=== PATIENT | female | born 2000 | race Hispanic/Latino ===

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

== ENCOUNTER 2019-02-12 02:44 | Emergency (ER) | payer OTHER, SELFPAY ==
[2019-02-12 03:12] LABS: #Eosinphils 0.2 thou/uL (0.0-0.7); #Lymphocytes 2.6 thou/uL (1.20-3.40); #Monocytes 0.6 thou/uL (0.11-0.59); #Neutrophils 4.9 thou/uL (1.40-6.50); %Basophils 0.5 % (0.0-1.0); %Eosinophils 2.7 % (0.0-10.0); %Lymphocytes 31.5 % (28.0-48.0); %Monocytes 7.3 % (0.0-4.0); %Neutrophils 57.9 % (31.0-61.0); Hemoglobin 14.5 g/dL (12.0-16.0); Mean Corpuscular HGB CONC 34.7 g/dL (32.0-36.0); Mean Corpuscular Hemoglobin 32.6 pg (25.0-35.0); Mean Corpuscular Volume 94.1 fL (78.0-98.0); Mean Platelet Volume 8.4 fL (7.4-10.4); Platelet Count 253 thou/uL (130-400); RBC Distribution Width 11.4 % (11.5-14.5); Red Blood Cell (RBC) Count 4.43 mill/uL (4.00-5.20); White Blood Cell (WBC) Count 8.4 thou/uL (4.8-10.8)
[2019-02-12 03:19] LABS: Bilirubin Negative (Negative); Blood, Urine Negative (Negative); Clarity Clear (Clear); Glucose, Urine (Dipstick) Normal (Negative); Leukocyte 25 Leu/uL (Negative); Nitrite Negative (Negative); Protein, Urine (Dipstick) Negative (Neg-Trace); Squamous Epithelial 0-3 HPF (0-3); Urobilinogen Normal mg/dL (Less than 2); WBC/HPF 0-3 HPF (0-3)
== END 2019-02-12 04:22 | disposition home or self-care (01) ==
LOC: ERS 02:44
DX: O20.0 Threatened abortion (principal)
CPT/HCPCS: 81003; 81015; 84702; 85025; 86900; 86901

== ENCOUNTER 2019-02-22 14:53 | Emergency (ER) | payer SELFPAY ==
[2019-02-22 15:23] LABS: #Basophils 0.1 thou/uL (0.0-0.2); #Eosinphils 0.2 thou/uL (0.0-0.7); #Lymphocytes 2.3 thou/uL (1.20-3.40); #Monocytes 0.5 thou/uL (0.11-0.59); #Neutrophils 7.8 thou/uL (1.40-6.50); %Basophils 0.5 % (0.0-1.0); %Eosinophils 1.5 % (0.0-10.0); %Lymphocytes 21.3 % (28.0-48.0); %Monocytes 4.3 % (0.0-4.0); %Neutrophils 72.3 % (31.0-61.0); Hemoglobin 13.8 g/dL (12.0-16.0); Mean Corpuscular HGB CONC 34.1 g/dL (32.0-36.0); Mean Corpuscular Hemoglobin 32.1 pg (25.0-35.0); Mean Corpuscular Volume 94.2 fL (78.0-98.0); Mean Platelet Volume 8.3 fL (7.4-10.4); Platelet Count 260 thou/uL (130-400); RBC Distribution Width 11.5 % (11.5-14.5); White Blood Cell (WBC) Count 10.8 thou/uL (4.8-10.8)
--- NOTE | 2019-02-22 16:50 | ULT ---
ULTRASOUND PELVIS TRANSVAGINAL WITH DOPPLER: 02/22/19 HISTORY: Vaginal bleeding and . COMPARISON: None. FINDINGS: Single viable intrauterine with average ultrasound age of 7 week, 2 day. Estimated date of delivery 10/29/19. Diablo-rump length: 1.03 cm, 7 week, 1 day. Gestational sac diameter: 2.43 cm, 7 week, 3 day. Yolk sac: 3 mm. heart rate documented at 145 beats per minute. Small subchorionic hemorrhage. The right ovary is not well seen. The left ovary appears normal although vascular flow evaluation is limited due to its posterior position. IMPRESSION: Normal single viable intrauterine with small subchorionic hemorrhage. POS: HOME
[2019-02-24 04:39] LABS: Chlamydia by PCR Not Detected (NotDetected); GC by PCR Not Detected (NotDetected)
== END 2019-02-22 18:08 | disposition home or self-care (01) ==
LOC: ERS 14:53
DX: O20.9 Hemorrhage in early pregnancy, unspecified (principal); M54.5 Low back pain; Z3A.01 Less than 8 weeks gestation of pregnancy
CPT/HCPCS: 36415; 76856; 84702; 85025; 86900; 86901; 87480; 87491; 87510; 87591; 87660

== ENCOUNTER 2019-05-02 10:39 | Emergency (ER) | payer OTHER ==
[2019-05-02 11:18] LABS: #Basophils 0.1 thou/uL (0.0-0.2); #Eosinphils 0.1 thou/uL (0.0-0.7); #Lymphocytes 1.2 thou/uL (1.20-3.40); #Monocytes 0.2 thou/uL (0.11-0.59); #Neutrophils 4.9 thou/uL (1.40-6.50); %Basophils 1.1 % (0.0-1.0); %Eosinophils 1.3 % (0.0-10.0); %Monocytes 3.8 % (0.0-4.0); %Neutrophils 74.9 % (31.0-61.0); Hemoglobin 12.9 g/dL (12.0-16.0); Mean Corpuscular HGB CONC 35.8 g/dL (32.0-36.0); Mean Corpuscular Hemoglobin 33.5 pg (25.0-35.0); Mean Corpuscular Volume 93.4 fL (78.0-98.0); Mean Platelet Volume 8.7 fL (7.4-10.4); Platelet Count 191 thou/uL (130-400); RBC Distribution Width 12.1 % (11.5-14.5); Red Blood Cell (RBC) Count 3.87 mill/uL (4.00-5.20); White Blood Cell (WBC) Count 6.5 thou/uL (4.8-10.8)
[2019-05-02 11:42] LABS: ALT (SGPT) 24 U/L (8-55); AST (SGOT) 21 U/L (5-34); Albumin 4.1 g/dL (3.5-5.0); Alkaline Phosphatase 58 U/L (40-150); Anion Gap 11 mmol/L (10-20); BUN (Urea Nitrogen) 5 mg/dL (7.0-18.7); Bilirubin, Total 0.4 mg/dL (0.2-1.2); Calc. Creatinine Clearance 0 mL/min (70-130); Calcium 9.6 mg/dL (7.8-10.44); Carbon Dioxide 22 mmol/L (22-29); Chloride 106 mmol/L (98-107); Estimated GFR-MDRD Greater than 90; Globulin 3.1 g/dL (2.4-3.5); Glucose 99 mg/dL (70-105); Potassium 3.6 mmol/L (3.5-5.1); Protein, Total 7.2 g/dL (6.0-8.3); Sodium 135 mmol/L (136-145)
[2019-05-02 13:09] LABS: Bilirubin Negative (Negative); Blood, Urine Negative (Negative); Clarity Clear (Clear); Glucose, Urine (Dipstick) Normal (Negative); Leukocyte Negative Leu/uL (Negative); Nitrite Negative (Negative); Protein, Urine (Dipstick) Negative (Neg-Trace); Urobilinogen Normal mg/dL (Less than 2)
[2019-05-03 21:40] LABS: Chlamydia by PCR Not Detected (NotDetected); GC by PCR Not Detected (NotDetected)
== END 2019-05-02 13:36 | disposition home or self-care (01) ==
LOC: ERS 10:39
DX: O99.89 Other specified diseases and conditions complicating pregnancy, childbirth and the puerperium (principal); R10.32 Left lower quadrant pain; Z3A.17 17 weeks gestation of pregnancy
CPT/HCPCS: 36415; 80053; 81003; 84702; 85025; 87491; 87591; 99284

== ENCOUNTER 2019-05-26 13:24 | Outpatient (CLI) | payer OTHER ==
--- NOTE | 2019-05-26 14:32 | ULT ---
EXAM: OB ultrasound COMPARISON: None HISTORY: female. Evaluate size, dates, and anatomy. TECHNIQUE: Multiplanar grayscale and color Doppler images were obtained in a transabdominal ult rasound. FINDINGS: There is a single live intrauterine with heart rate of 144 bpm. A survey wa s performed which is unremarkable. The head, intracranial structures, heart, stomach, kidneys, umbilical cord, umbilical cord insertion, spine, face, and extremities were evaluated and were unrema rkable. Estimated weight is 407 g. Average age of the fetus based off today's examination is 21 weeks 4 days. BPD 5.32 cm -- 22 weeks 2 days HC 18.87 cm -- 21 weeks 2 days AC 15.98 cm -- 21 weeks 1 day FL 3.56 cm -- 21 weeks 2 days The placenta is anterior in location without focal abnormality. JAMA is 14.7 cm which is normal. The cervix is slightly shortened in length measuring 2.5 cm. There is no evidence of placenta previa. IMPRESSION: Single live intrauterine with estimated age of 21 weeks 4 days.
== END 2019-05-26 13:25 | disposition home or self-care (01) ==
LOC: BICULT 13:24
PROVIDERS: ATTEND Obstetrics & Gynecology
DX: Z34.02 Encounter for supervision of normal first pregnancy, second trimester (principal); Z3A.21 21 weeks gestation of pregnancy
CPT/HCPCS: 76805

== ENCOUNTER 2019-07-29 09:36 | Day surgery (SDC) | payer OTHER ==
[2019-07-29 10:06] VITALS: BP 108/65; TEMP 98; BMI 21.4
--- NOTE | 2019-07-29 11:08 | ULT ---
US Biophysical Profile History: Cholestasis Comparison: OB ultrasound May 2019 Findings: The biophysical profile score is 8/8. Amniotic fluid index measures 10 cm. The placenta is anterior and the position is vertex. Impression: Biophysical profile score of 8/8.
== END 2019-07-29 11:05 | disposition home or self-care (01) ==
LOC: L&D/OP 09:36
PROVIDERS: ATTEND Obstetrics & Gynecology
DX: O26.619 Liver and biliary tract disorders in pregnancy, unspecified trimester (principal); K83.1 Obstruction of bile duct; Z3A.00 Weeks of gestation of pregnancy not specified
CPT/HCPCS: 59025; 76819; 99282

== ENCOUNTER 2019-09-03 07:33 | Inpatient (IN) | payer OTHER, SELFPAY ==
[2019-09-03] MEDS ORDERED: Lidocaine 1% (PF) 30 ML VIAL SC PRN (08:06)
[2019-09-03] MEDS ORDERED: Ondansetron PF 4 MG/2 ML Vial IVP PRN (08:06)
[2019-09-03] MEDS ORDERED: Lidocaine 1% (PF) 30 ML VIAL ONE (08:06)
[2019-09-03] MEDS ORDERED: HYDROcodone/Acetaminophen 5/325 mg Tablet PO PRN (08:06)
[2019-09-03] MEDS ORDERED: hydrALAZINE 20 MG/ML VIAL SLOW IVP PRN ×2 (08:06→10:18)
[2019-09-03] MEDS ORDERED: NS / Oxytocin 40 units/1000ml 1,000 ML ONE (08:06)
[2019-09-03] MEDS ORDERED: NS / Oxytocin 40 units/1000ml 1,000 ML IV PRN (08:06)
[2019-09-03] MEDS ORDERED: Ibuprofen 800 MG TAB PO PRN (08:06)
[2019-09-03] MEDS ORDERED: Lactated Ringer's 1,000 ML IV SCH (08:15)
[2019-09-03 08:48] LABS: Hemoglobin 10.7 g/dL (12.0-16.0); Mean Corpuscular HGB CONC 34.4 g/dL (32.0-36.0); Mean Corpuscular Hemoglobin 30.7 pg (27.0-31.0); Mean Corpuscular Volume 89.4 fL (78.0-98.0); Mean Platelet Volume 9.9 fL (7.4-10.4); Platelet Count 231 thou/uL (130-400); RBC Distribution Width 12.3 % (11.5-14.5); Red Blood Cell (RBC) Count 3.47 mill/uL (4.20-5.40); White Blood Cell (WBC) Count 10.2 thou/uL (4.8-10.8)
[2019-09-03 09:15] LABS: HBSAg Index 0.17 S/CO (0-0.99); Hep B Surf Ag Non-Reactive S/CO (NonReactive); Syphilis Antibody Nonreactive (Nonreactive); Syphilis Antibody Index 0.04 S/CO (<1.00 Non-Reactive)
[2019-09-03 09:48] VITALS: BMI 22.6
[2019-09-03] MEDS ORDERED: Milk Of Magnesia 30 ML UDCUP PO PRN (10:18)
[2019-09-03] MEDS ORDERED: NS / Oxytocin 40 units/1000ml 1,000 ML IV SCH (10:18)
[2019-09-03] MEDS ORDERED: Bisacodyl 10 MG SUPP PR PRN (10:18)
[2019-09-03] MEDS ORDERED: Adacel (T-DAP) 0.5 ML SYRINGE IM ONE (10:18)
--- NOTE | 2019-09-03 10:36 | PDOC.FPROB ---
FMR OB H&P: HPI - History of Present Illness Chief Complaint: Contractions Indentification: 19 y/o at 34.5 wks by LMP/1T sono History of Present Illness: 19 y/o at 34.5 wks by LMP/1T sono presents with contractions since 2:00 AM that have increased in intensity and frequency. On presentation patient noted to be complete. She denies any significant PMH. Patient endorses movement. Primary Care Physician: Enoch FMR OB H&P: Current - Care : 2 Para: 0010 Gestational age: 34.5 wks Due date: 10/10/2019 Dating Criteria: LMP/1T sono - OB Labs Blood type: O RH: positive Antibody Screen: negative HIV: negative RPR: negative HepBsAg: negative Rubella: immune Urine drug screen: negative Gonorrhea: negative Chlamydia: negative 1 hour gtt: 118 GBS: unknown FMR OB H&P: History - Past Medical History PMH: Denies - OB History OB History: SAB x1 Cholestasis of - DIALYSIS REGISTERED NURSE History DIALYSIS REGISTERED NURSE History: Hx LGSIL - Surgical History Sx History: Denies - Social History Social History: Denies alcohol, tobacco, or drug use FMR OB H&P: Medications - Current Home Medications: Medication Instructions Recorded Confirmed Type Ursodiol [Julio Cesar] 1 tab PO TID 07/29/19 09/03/19 History predniSONE 1 tab PO DAILY 09/03/19 09/03/19 History Allergies/Adverse Reactions: Allergies Allergy/AdvReac Type Severity Reaction Status Date / Time No Known Drug Allergies Allergy Verified 07/29/19 10:01 FMR OB H&P: ROS - Review of Systems General: reports: fever/chills, weight/appetite/sleep changes Eyes: reports: eye pain, double vision ENT: reports: nasal congestion, sore throat Respiratory: reports: cough, congestion, shortness of breath Gastrointestinal: reports: abdominal pain, nausea. denies: vomiting Genitourinary (Female): reports: vaginal pain, contractions, vaginal pressure. denies: dysuria Musculoskeletal: denies: pain, stiffness Neurologic: denies: numbness, seizures Integumentary: denies: itching, lesions FMR OB H&P: Vital Signs - Maternal Vital signs: BP 116/73 Pulse 86 Afebrile - Heart Tones Baseline: 135 Variability: moderate Acceleration: present Deceleration: absent Category: category 1 [place] contractions every: q2-3 min FMR OB H&P: Physical Exam - Physical Exam General: awake, alert and oriented Deviation from normal: Moderate distress d/t contractions HEENT: MMM Heart: RRR, pulses present General: no respiratory distress Abdomen: soft, gravid, bowel sound present Musculoskeletal: pulses present, FROM in all four extremities Neurological: no tremor, no focal deficit Skin: no rash, capillary refill <2 seconds Lymphatic: no unusual bruising or bleeding, no purpura Psychiatric: intact recent and remote memory FMR OB H&P: Results - Labs Lab results: Laboratory Results - last 24 hr 09/03/19 09/03/19 09/03/19 08:24 08:24 08:24 WBC RBC Hgb Hct MCV MCH MCHC RDW Plt Count MPV Syphilis IgG/IgM Ab Nonreactive Hep Bs Antigen Non-Reactive Blood Type O POSITIVE Antibody Screen NEGATIVE 09/03/19 08:24 WBC 10.2 RBC 3.47 L Hgb 10.7 L Hct 31.0 L MCV 89.4 MCH 30.7 MCHC 34.4 RDW 12.3 Plt Count 231 MPV 9.9 Syphilis IgG/IgM Ab Hep Bs Antigen Blood Type Antibody Screen FMR OB H&P: A/P - Problem List (1) Active labor Current Visit: Yes Status: Acute Code(s): BPA3494 - (2) Intrauterine Current Visit: Yes Status: Acute Code(s): Z34.90 - ENCNTR FOR SUPRVSN OF NORMAL , UNSP, UNSP TRIMESTER Disposition: 19 year old at 34.5 wk by LMP/1T sono presents in active labor. sIUP in active labor - Admit to L&D - Expectant management - Maternal Hx: cholestasis of , Hx SAB - GBS status unknown. Not enough time for antibiotics. - Precipitous deliver Cholestasis of - Patient had IOL scheduled for next week - Patient on ursodiol SAB x1 GBS Unknown - Precipitous delivery; antibiotics not given Dispo: Admit to L&D for expectant management. Discussion: Date/Time: 09/03/19 1033 This H&P was discussed with Dr. Chaudhari who agrees with the above documentation and plan. Signature: Zoila Zita, DO PGY-3 Addendum - Attending - Attending Attestation Date/Time: 09/04/19 3110 I personally evaluated the patient and discussed the management with Dr. Ahumada I agree with the History, Examination, Assessment and Plan documented above with any addition or exceptions noted below.
--- NOTE | 2019-09-03 11:11 | PDOC.OPDEL ---
OB Operative/Delivery Note Delivery Dr/Surgeon: Watson Ahumada Pre-Delivery Diagnosis: active labor Procedure/Post Delivery Dx: spontaneous vaginal delivery Weeks gestation: 34 (34.5 wks) Anesthesia: none - Findings A Sex: male Weight: 2.755 kg - 1 min: 8 - 5 min: 9 - Additional Findings/Plan Placenta delivered: spontaneous Repaired Obstetrical Laceration: other (right hymenal laceration, hemostatic) Estimated blood loss: 10 mL Compilations/Other Findings: Delivering Physician: Zita Attending: Watson Procedure: Spontaneous Vaginal Delivery Anesthesia: None EBL: 10 mL Pre-op Diagnosis: 1. IUP in active labor at 34.5 wks 2. Cholestasis of 3. Hx SAB Post-op Diagnosis: 1. IUP, delivered 2. Same as above Indications: A 19 y/o female who presents in active labor. Delivery Note: This is 19 yo F @ 34.5 wks by LMP/1T sono who delivered a viable M at 8:31 on 09/03/2019 via . Patient presented at 9 cm dilated. Just prior to delivery, bradycardia present. A vigorous male was delivered over an intact perineum in the occipitoanterior position. Anterior shoulder and then remainder of the body delivered. No nuchal cord. The head was held down and mouth and nares were bulb suctioned. Cord clamped and cut and cord blood collected. Placenta delivered intact with a 3 vessel cord noted. Fundal massage was performed and the fundus was firm. The cervix and vagina were inspected and a left hymenal laceration was noted that was hemostatic and did not need repair. Neonatology present at time of delivery. Based on Boyle scoring, they project to be closer to 37 WGA. Given gestational age based on Boyle scoring, infant did not require stay in NICU. went to routine nursery for care. Apgars were 8/9 at 1 & 5 minutes, respectively. Patient tolerated delivery well and went to after routine recovery/care. Post delivery plan: routine recovery Addendum - Attending - Attending Attestation Date/Time: 09/06/19 0724 I was personally present for the second and third stages of labor supervising Dr Ahumada and agree with the above documentation.
[2019-09-03] MEDS ORDERED: Benzocaine-Menthol 82.5 ML CAN TOP PRN (14:40)
[2019-09-03] MEDS ORDERED: Witch Hazel-Glycerin 1 EACH JAR TOP PRN (14:40)
[2019-09-03] MEDS: Ibuprofen 800 MG TAB PO SCH ×2 (15:46→19:04)
[2019-09-03] MEDS: Ferrous Sulfate 325 MG TAB PO SCH (16:13)
[2019-09-03] MEDS: Docusate Calcium (SURFAK) 240 MG CAP PO SCH (21:34)
[2019-09-04] MEDS: Ibuprofen 800 MG TAB PO SCH ×3 (03:03→21:59)
[2019-09-04 06:22] LABS: Hemoglobin 10.7 g/dL (12.0-16.0); Mean Corpuscular Volume 90.8 fL (78.0-98.0); Mean Platelet Volume 9.8 fL (7.4-10.4); Platelet Count 230 thou/uL (130-400); RBC Distribution Width 12.4 % (11.5-14.5); Red Blood Cell (RBC) Count 3.58 mill/uL (4.20-5.40); White Blood Cell (WBC) Count 10.6 thou/uL (4.8-10.8)
[2019-09-04] MEDS: Ferrous Sulfate 325 MG TAB PO SCH ×2 (08:08→18:26)
[2019-09-04] MEDS: Docusate Calcium (SURFAK) 240 MG CAP PO SCH ×2 (09:42→21:59)
[2019-09-05] MEDS: Ibuprofen 800 MG TAB PO SCH ×2 (05:50→13:42)
[2019-09-05 08:19] VITALS: BP 98/54; TEMP 98.1
[2019-09-05] MEDS: Ferrous Sulfate 325 MG TAB PO SCH (12:31)
[2019-09-05] MEDS: Docusate Calcium (SURFAK) 240 MG CAP PO SCH (12:31)
== END 2019-09-05 15:50 | disposition home or self-care (01) | DRG 805 ==
LOC: L&D/OP 07:33 → L&D 08:06 → 3SW 12:38
PROVIDERS: ADMIT Family Medicine; ATTEND Family Medicine
PROC: 10E0XZZ Delivery of Products of Conception, External Approach (ICD-10-PCS; principal; 2019-09-03)
DX: O60.14X0 Preterm labor third trimester with preterm delivery third trimester, not applicable or unspecified (principal); K83.1 Obstruction of bile duct; Z37.0 Single live birth; O26.62 Liver and biliary tract disorders in childbirth; Z3A.34 34 weeks gestation of pregnancy; O70.0 First degree perineal laceration during delivery
CPT/HCPCS: 36415; 85027; 86780; 86850; 86900; 86901; 87340; 88307; 99285; J2001

== ENCOUNTER 2021-04-24 23:33 | Emergency (ER) | payer MEDICAID, OTHER | END 2021-04-25 00:25 | disposition home or self-care (01) | LOC: ERS 23:33 | DX: F41.0 Panic disorder [episodic paroxysmal anxiety] (principal); R07.2 Precordial pain | CPT/HCPCS: 71045; 93005 ==

== ENCOUNTER 2025-05-30 21:05 | Emergency (ER) | payer MEDICAID, SELFPAY ==
[2025-05-30 22:06] LABS: Bacteria/HPF None Seen HPF (None Seen); CAUTI Indications for Culture Alt mental st,lethar; Glucose, Urine (Dipstick) Normal (Negative); Leukocyte Negative Leu/uL (Negative); Protein, Urine (Dipstick) Negative (Neg-Trace); RBC/HPF 0-3 HPF (0-3); Specific Gravity, Urine 1.032 (1.002-1.036); WBC/HPF 0-3 HPF (0-3)
[2025-05-30 22:09] LABS: Pregnancy Test - Urine (BHCG) Negative (Negative); Pregu Control Background? CLEAR/WHITE (CLR/WHITE); Pregu Control Bar Appear? YES (CONTROL BAR)
[2025-05-30 22:10] LABS: Urine Culture Reflex No No
[2025-05-30 22:14] LABS: Cocaine Metabolite Screen Negative (Negative); THC/Cannabinoid Screen Negative (Negative); Tricyclic Screen Negative (Negative)
[2025-05-30 22:39] LABS: #Basophils 0.03 10x3/uL (0.0-0.2); #Eosinophils 0.21 10x3/uL (0.0-0.7); #Monocytes 0.41 10x3/uL (0.11-0.59); #Neutrophils 3.42 10x3/uL (1.40-6.50); %Basophils 0.5 % (0.0-1.0); %Eosinophils 3.3 % (0.0-10.0); %Lymphocytes 35.8 % (21.0-51.0); %Monocytes 6.4 % (0.0-10.0); %Neutrophils 53.7 % (42.0-75.0); Hematocrit 40.3 % (36.0-47.0); Hemoglobin 13.4 g/dL (12.0-16.0); Mean Corpuscular Hemoglobin 30.9 pg (27.0-31.0); Mean Corpuscular Volume 92.9 fL (78.0-98.0); Platelet Count 256 10x3/uL (130-400); Red Blood Cell (RBC) Count 4.34 mill/uL (4.20-5.40); White Blood Cell (WBC) Count 6.37 10x3/uL (4.8-10.8)
[2025-05-30 23:12] LABS: Acetaminophen Less than 10 mcg/mL (Less than 10); Salicylate Less than 8.0 mg/dL (Less than 8.0)
[2025-05-30 23:13] LABS: ALT (SGPT) 28 U/L (Less than 34); AST (SGOT) 35 U/L (11-34); Albumin 4.6 g/dL (3.1-4.5); Alkaline Phosphatase 58 U/L (40-110); Anion Gap 14 mmol/L (10-20); BUN (Urea Nitrogen) 17 mg/dL (7.0-18.7); Bilirubin, Total 0.4 mg/dL (0.3-1.2); Calc. Creatinine Clearance 0 mL/min (70-130); Calcium 9.3 mg/dL (7.8-10.44); Carbon Dioxide 24 mmol/L (22-29); Chloride 108 mmol/L (98-107); Globulin 3.1 g/dL (2.4-3.5); Glucose 65 mg/dL (70-105); Potassium 3.6 mmol/L (3.5-5.1); Sodium 142 mmol/L (136-145)
== END 2025-05-31 04:47 | disposition home or self-care (01) ==
LOC: ERS 21:05
DX: R44.1 Visual hallucinations (principal); R44.0 Auditory hallucinations; Z55.6 Problems related to health literacy
CPT/HCPCS: 36415; 70450; 80053; 80306; 80307; 81001; 81025; 84443; 85025; 93005; Q0162